=== PATIENT | female | born 1995 | race Two or more races ===

== ENCOUNTER 2023-08-16 08:38 | Outpatient (CLI) | payer OTHER ==
[2023-08-16] MEDS ORDERED: BACTRIM DS TAB1 EACH PO (20:24)
[2023-08-16] MEDS ORDERED: IBUPROFEN600 MG PO (20:24)
== END 2023-08-16 08:48 | disposition home or self-care (01) ==
LOC: RX STUDY 08:38
DX: N97.1 Female infertility of tubal origin (principal); N97.0 Female infertility associated with anovulation; E28.2 Polycystic ovarian syndrome

== ENCOUNTER 2023-08-16 13:14 | Emergency (ER) | payer OTHER ==
[~2023-08-16] VITALS: Ht 157.5 cm; Wt 61.2 kg
[2023-08-16 16:50] LABS: HEMATOCRIT 37.1 % (36.0-45.00); MEAN CELL VOLUME 88.1 fL (80.00-100.00); MEAN CORPUSCULAR HEMOGLOBIN 30.8 pg (27.00-32.0); PLATELET COUNT 233 K/uL (150-450); RED BLOOD COUNT 4.22 M/uL (4.00-6.00)
[2023-08-16 17:08] LABS: PARTIAL THROMBOPLASTIN TIME 27.9 SECONDS (22.0-34.0); PROTHROMBIN TIME 10.5 SECONDS (9.0-11.5)
[2023-08-16 19:24] LABS: PH,URINE 5.5 (5.0-8.0); URINE APPEARANCE Cloudy; URINE BILIRRUBIN Negative (NEGATIVE); URINE BLOOD Moderate; URINE COLOR Yellow; URINE GLUCOSE Negative (NEGATIVE); URINE LEUKOCYTE Large; URINE NITRATE Negative; URINE PROTEIN Negative (NEGATIVE); URINE UROBILINOGEN 0.2 E.U./dl
[2023-08-16 19:27] LABS: URINE EPITHELIAL CELLS 54.2 uL (0.0-38.8); URINE RBC 6.4 uL (0.0-20.8)
[2023-08-16 20:00] LABS: CALCIUM 9.4 mg/dL (8.5-10.1); CREATININE SERUM 0.82 mg/dL (0.55-1.02); GFR 82.42; POTASSIUM 3.53 mEq/L (3.5-5.1)
[2023-08-16] MEDS ORDERED: BACTRIM DS TAB1 EACH PO (20:24)
[2023-08-16] MEDS ORDERED: IBUPROFEN600 MG PO (20:24)
== END 2023-08-16 20:35 | disposition home or self-care (01) ==
LOC: ER 13:14
PROVIDERS: General Practice
DX: Z98.890 Other specified postprocedural states (principal)